=== PATIENT | male | born 1975 | race Caucasian/White ===

== ENCOUNTER 2017-12-21 19:43 | Emergency (ER) | payer SELFPAY ==
[~2017-12-21] VITALS: Ht 165.1 cm; Wt 69.0 kg
[2017-12-21 20:50] VITALS: BP 131/181
== END 2017-12-21 20:55 | disposition home or self-care (01) ==
LOC: ER 19:43
DX: F10.129 Alcohol abuse with intoxication, unspecified (principal); Z87.828 Personal history of other (healed) physical injury and trauma
CPT/HCPCS: 99283